=== PATIENT | female | born 1955 | race Caucasian/White ===

== ENCOUNTER 2018-05-14 13:16 | Emergency (ER) | payer BC ==
[~2018-05-14] VITALS: Ht 157.5 cm; Wt 76.6 kg
[~2018-05-14 13:16] MED LIST: ASPI-611; ATOR20TA PO; CARI350T PO; CLOP75TA35 PO; LOP25T PO; LOSA25TA96 PO; NOR5T PO; VIT D
[2018-05-14 13:43] LABS: BASOPHILS % (AUTO) 0.4 % (0-1); EOSINOPHILS # (AUTO) 0.6 X10'3 (0-0.9); EOSINOPHILS % (AUTO) 5.3 % (0-6); HEMOGLOBIN 14.2 g/dl (12.0-16.0); LYMPHOCYTES # (AUTO) 1.7 X10'3 (1.1-4.8); LYMPHOCYTES % (AUTO) 16.1 % (21-51); MEAN CORPUSCULAR HEMOGLOBIN 30.1 PG (27.0-31.0); MEAN CORPUSCULAR HGB CONC 33.7 % (33.0-36.5); MEAN CORPUSCULAR VOLUME 89.3 FL (78-98); MEAN PLATELET VOLUME 8.5 FL (7.4-10.4); MONOCYTES # (AUTO) 0.5 X10'3 (0-0.9); MONOCYTES % (AUTO) 5.1 % (2-12); NEUTROPHILS # (AUTO) 7.7 X10'3 (1.8-7.7); NEUTROPHILS % (AUTO) 73.1 % (42-75); PLATELET COUNT 215 X10'3 (140-440); RED CELL DISTRIBUTION WIDTH 14.6 % (11.5-14.5); WHITE BLOOD COUNT 10.5 X10'3 (4.5-11.0)
[2018-05-14] MEDS ORDERED: ipratropium/albuterol 3ml nebule NEB ONE (13:50)
[2018-05-14 13:57] LABS: ALANINE AMINOTRANSFERASE 24 U/L (12-78); ALBUMIN 3.9 G/DL (3.4-5.0); ALBUMIN/GLOBULIN RATIO 1.1 (1.1-1.5); ALKALINE PHOSPHATASE 66 IU/L (46-116); ANION GAP 10 (8-16); ASPARTATE AMINO TRANSFERASE 16 U/L (10-37); BLOOD UREA NITROGEN 30 MG/DL (7-18); BUN/CREATININE RATIO 14.8 (6.6-38.0); CALCIUM 9.6 MG/DL (8.5-10.1); CHLORIDE 104 MMOL/L (99-107); CREATININE 2.03 MG/DL (0.40-0.90); GLUCOSE 97 MG/DL (70-104); SODIUM 140 MMOL/L (135-145); TOTAL CARBON DIOXIDE 25.9 MMOL/L (24-32); TOTAL PROTEIN 7.5 G/DL (6.4-8.2); eGFR 25 ML/MIN
[2018-05-14 13:58] LABS: PARTIAL THROMBOPLASTIN TIME 33 SECONDS (22-32); PROTHROMBIN TIME 10.5 SECONDS (9.0-12.0)
[2018-05-14 14:11] LABS: D-DIMER 0.76 MG/L FEU (0-0.50)
--- NOTE | 2018-05-14 14:39 | NUR ---
PATIENT HAVING A CONVERSATION ON THE PHONE SPO2 100%
[2018-05-14 14:55] VITALS: BP 107/64
== END 2018-05-14 15:17 | disposition home or self-care (01) ==
LOC: ER 13:16
DX: R06.02 Shortness of breath (principal); R79.89 Other specified abnormal findings of blood chemistry; E78.00 Pure hypercholesterolemia, unspecified; I10 Essential (primary) hypertension; J44.9 Chronic obstructive pulmonary disease, unspecified; Z79.82 Long term (current) use of aspirin; Z79.899 Other long term (current) drug therapy
CPT/HCPCS: 36415; 71045; 80053; 83880; 84484; 85025; 85379; 85610; 85730; 93005; 94640; 94760; 99284

== ENCOUNTER 2024-10-27 23:19 | Emergency (ER) | payer BC ==
[~2024-10-27] VITALS: Ht 157.5 cm; Wt 74.7 kg
[~2024-10-27 23:19] MED LIST changes: +CLOP75TA34 PO; -CLOP75TA35 PO; +LOSA-415 PO; -LOSA25TA96 PO
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
[2024-10-28] MEDS: TETanus/Pertussis (Acell)/Diphther VAC/PF (Tdap-Adult) 0.5ml syringe IMVAC ONE (00:26)
[2024-10-28] MEDS: LIDOcaine 1% W/epiNEPHrine 1:100,000 20ml vial SQ ONE (00:29)
[2024-10-28] MEDS: mag hydrox/Alum hydrox/simeth 30ml oral suspension PO ONE (00:34)
[2024-10-28 02:44] VITALS: BP 105/65; PULSE 82; RESP 12; TEMP 98.9; O2SAT 95
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
== END 2024-10-28 02:46 | disposition home or self-care (01) ==
LOC: ER 23:20
DX: S81.811A Laceration without foreign body, right lower leg, initial encounter (principal); I10 Essential (primary) hypertension; E78.00 Pure hypercholesterolemia, unspecified; J44.9 Chronic obstructive pulmonary disease, unspecified; Z79.01 Long term (current) use of anticoagulants; Z79.82 Long term (current) use of aspirin; Z79.899 Other long term (current) drug therapy; Z72.89 Other problems related to lifestyle; V89.2XXA Person injured in unspecified motor-vehicle accident, traffic, initial encounter; Y93.89 Activity, other specified; Y92.89 Other specified places as the place of occurrence of the external cause; Y99.8 Other external cause status
CPT/HCPCS: 12002; 73590; 90471; 90715; 99283; A6258; A6449; J3490